=== PATIENT | male | born 2000 | race Two or more races ===

== ENCOUNTER 2024-03-03 15:51 | Emergency (ER) | payer OTHER ==
[~2024-03-03] VITALS: Ht 165.1 cm; Wt 66.7 kg
[2024-03-03] MEDS ORDERED: ORPHENADRINE CITRATE 30 MG/ML AMPUL IM ONE (17:15)
[2024-03-03] MEDS ORDERED: DEXAMETHASONE SODIUM PHOSPHATE 4 MG/ML VIAL IM ONE (17:15)
[2024-03-03] MEDS ORDERED: KETOROLAC TROMETHAMINE 60 MG VIAL IM ONE (17:15)
[2024-03-03] MEDS ORDERED: IBUPROFEN600 MG PO (17:30)
[2024-03-03] MEDS ORDERED: NORFLEX100MG PO (17:30)
== END 2024-03-03 18:37 | disposition home or self-care (01) ==
LOC: ER 15:54
DX: M94.0 Chondrocostal junction syndrome [Tietze] (principal)